=== PATIENT | male | born 1960 | race Two or more races ===

== ENCOUNTER 2017-09-23 08:11 | Emergency (ER) | payer MEDICAID ==
[~2017-09-23] VITALS: Ht 170.2 cm; Wt 72.6 kg
[2017-09-23 08:58] VITALS: BP 149/91
--- NOTE | 2017-09-23 09:02 | Emergency Room Report ---
History of Present Illness General Chief Complaint: Eye Problems Source: Patient Present Illness HPI This patient states that he does have a history of dry eyes. He has seen an eye doctor for this. However, he states that over the past day he has had a gritty feeling to both of his eyes. He states that he also has watery eyes. He states that this morning when he woke up he had crossed all over his eyes. He denies sneezing. He denies cough or congestion. He denies blurry vision. He denies fever or chills. He has no other complaints. Allergies: Coded Allergies: No Known Allergies (Unverified , 09/23/17) Patient History Past Medical History: none Past Surgical History: none Social History: Denies: smoking, alcohol use, drug use Reviewed Nursing Documentation: PMH: Agreed; PSxH: Agreed Nursing Documentation-PMH Past Medical History: No History, Except For Hx Cardiac Problems: No - dry eyes Review of Systems All Other Systems: negative except mentioned in HPI Physical Exam Vital Signs Date Time Temp Pulse Resp B/P (MAP) Pulse Ox O2 Delivery O2 Flow Rate FiO2 09/23/17 08:41 97.8 62 18 149/91 97 Room Air 97.9 Sp02 EP Interpretation: reviewed, normal General Appearance: no apparent distress, alert, GCS 15, non-toxic Head: normocephalic, atraumatic Eyes: bilateral eye PERRL, bilateral eye other - mild bilateral conjuctival erythema ENT: hearing grossly normal, normal pharynx, no angioedema, normal voice Respiratory: no respiratory distress, no retraction, no accessory muscle use, speaking full sentences Musculoskeletal: gait/station normal Neurologic: alert, oriented x3, responsive, motor strength/tone normal, sensory intact, speech normal Psychiatric: judgement/insight normal, memory normal, mood/affect normal, no suicidal/homicidal ideation Skin: normal color, no rash, warm/dry, well hydrated Medical Decision Making Diagnostic Impression: Primary Impression: Conjunctivitis ER Course This patient has a physical exam and history consistent with viral conjunctivitis. The patient does not wear contacts. There is no evidence of bacterial conjunctivitis. Also my differential is allergic conjunctivitis. I will go ahead and give the patient Ilotycin for comfort and as a precaution. The patient is also instructed on warm compresses. There is no evidence of a vision threatening medical condition. The patient is instructed to follow-up with an sat instructor as soon as possible. The patient is given close return precautions and follow-up instructions. Last Vital Signs Date Time Temp Pulse Resp B/P (MAP) Pulse Ox O2 Delivery O2 Flow Rate FiO2 09/23/17 08:41 97.8 62 18 149/91 97 Room Air 97.9 Disposition: HOME, SELF-CARE Condition: Improved Referrals: [facility],REFERRING (PCP) Patient Instructions: Viral Conjunctivitis CELIA IVERSON D.O. Sep 23, 2017 09:02
[2017-09-23] MEDS ORDERED: ERYTHROMYCIN3.5 GM BOTH EYES (09:20)
[2017-09-23 09:33] VITALS: BP 149/91
== END 2017-09-23 09:35 | disposition home or self-care (01) ==
LOC: EMR 09:01
DX: H10.9 Unspecified conjunctivitis (principal)
CPT/HCPCS: 99283

== ENCOUNTER 2017-09-27 15:51 | Inpatient (IN) | payer MEDICAID ==
[~2017-09-27] VITALS: Ht 170.2 cm; Wt 71.2 kg
[~2017-09-27 15:51] MED LIST: ERYTHROMYCIN3.5 GM BOTH EYES
[2017-09-27] MEDS ORDERED: NKM (16:06)
[2017-09-27 16:18] VITALS: BP 145/90
--- NOTE | 2017-09-27 16:38 | Emergency Room Report ---
History of Present Illness General Chief Complaint: Headache Source: Patient Present Illness HPI 57-year-old male with no medical history presents with left-sided temporoparietal area headache that started around midnight last night, constant , throbbing type pain, he also reports she's noticed for the last 1 week left eye blurred vision and for the last 2-3 weeks left-sided weakness in his arms and legs. He denies any trauma, any fevers or chills, any slurred speech, loss of consciousness, chest pain, short of breath, any other complaints. Allergies: Coded Allergies: No Known Allergies (Unverified , 09/23/17) Patient History Past Medical History: none, see triage record Past Surgical History: none Pertinent Family History: CVA - Mother Social History: Denies: smoking, alcohol use, drug use Reviewed Nursing Documentation: PMH: Agreed; PSxH: Agreed Nursing Documentation-PMH Past Medical History: No Stated History Hx Cardiac Problems: No - dry eyes Review of Systems All Other Systems: negative except mentioned in HPI Physical Exam Vital Signs Date Time Temp Pulse Resp B/P (MAP) Pulse Ox O2 Delivery O2 Flow Rate FiO2 09/27/17 16:02 98.3 71 18 145/90 96 Room Air 98.2 Sp02 EP Interpretation: reviewed, normal General Appearance: no apparent distress, alert, non-toxic Head: normocephalic Eyes: bilateral eye normal inspection, bilateral eye PERRL, bilateral eye EOMI ENT: normal ENT inspection, hearing grossly normal, normal pharynx, no angioedema, normal voice, moist mucus membranes Neck: normal inspection, full range of motion, supple, supple/symm/no masses Respiratory: chest non-tender, lungs clear, normal breath sounds, chest symmetrical, palpation of chest normal Cardiovascular #1: normal peripheral pulses, regular rate, rhythm Cardiovascular #2: 2+ radial (R), 2+ radial (L) Gastrointestinal: normal inspection, non tender, soft, no mass, no guarding, no rebound Rectal: deferred Genitourinary: normal inspection, no CVA tenderness Musculoskeletal: back normal, gait/station normal, normal range of motion, non- tender, no calf tenderness Neurologic: alert, responsive, direct of real estate III-XII nml as tested, motor strength/tone normal - Negative pronator drift, 5 out of 5 strength in all extremities except for left lower extremity with 4+ out of 5 strength when attempting to hold leg above the bed for 10 seconds, he starts to drift slightly, sensory intact - Patient reports decreased sensation left upper extremity and left lower extremity when compared to the right, normal gait, speech normal Psychiatric: judgement/insight normal, memory normal, mood/affect normal, no suicidal/homicidal ideation Skin: normal color, no rash, warm/dry, normal turgor Lymphatic: no adenopathy Medical Decision Making Diagnostic Impression: Primary Impression: Headache Additional Impression: Weakness ER Course Patient with left-sided upper and lower extremity numbness as well as left lower extremity weakness, as well as left-sided headache, symptoms concerning for possible stroke although patient has no risk factors other than having his mother with a history of stroke. He does have subjective numbness in the left upper and lower extremities when compared to the right, he also has left lower extremity with mild weakness when attempting to hold leg off the stretcher. Patient was given aspirin for possible stroke as well as Tylenol for headache. His headache started last night around midnight which is over 16 hours ago, and his weakness symptoms have been going on for a couple of weeks, so he is not a TPA candidate and out of the window for any neuro interventional options. He' ll be admitted for possible cva. EKG Diagnostic Results EKG Time: 16:36 EP Interpretation: NO st-t changes, no TWI's Rate: normal Rhythm: NSR ST Segments: no acute changes ASA given to the pt in ED: Yes Rhythm Strip Diag. Results Rhythm Strip Time: 17:03 EP Interpretation: yes Rate: 68 Rhythm: NSR, no PVC's, no ectopy Chest X-Ray Diagnostic Results Chest X-Ray Diagnostic Results : Chest X-Ray Ordered: Yes # of Views/Limited/Complete: 1 View Indication: Other EP Interpretation: Yes PA Xray: Interpretation reviewed Interpretation: no consolidation, no effusion, no pneumothorax, no acute cardiopulmonary disease Impression: No acute disease Electronically Signed by: Bandar Pearson MD CT/MRI/US Diagnostic Results CT/MRI/US Diagnostic Results : Imaging Test Ordered: CT head noncontrast Impression normal other than sinus dz Last Vital Signs Date Time Temp Pulse Resp B/P (MAP) Pulse Ox O2 Delivery O2 Flow Rate FiO2 09/27/17 16:18 98.2 72 18 145/90 96 Room Air 98.2 Disposition: ADMITTED INPATIENT Condition: Stable Signed Out To: BANDAR Plummer M.D Sep 27, 2017 16:38
[2017-09-27 17:07] LABS: BASOPHILS % (AUTO) 1.3 % (0.0-2.0); EOSINOPHILS % (AUTO) 0.3 % (0.0-3.0); HEMATOCRIT 41.5 % (42.0-52.0); LYMPHOCYTES % (AUTO) 25.6 % (20.0-45.0); MEAN CORPUSCULAR VOLUME 95 FL (80-99); NEUTROPHILS % (AUTO) 64.9 % (45.0-75.0); PLATELET COUNT 206 K/UL (150-450); RED BLOOD COUNT 4.36 M/UL (4.70-6.10); RED CELL DISTRIBUTION WIDTH 11.9 % (11.6-14.8); WHITE BLOOD COUNT 6.7 K/UL (4.8-10.8)
[2017-09-27 17:13] LABS: ANION GAP 9 mmol/L (5-15); BLOOD UREA NITROGEN 16 mg/dL (7-18); CALCIUM 8.8 MG/DL (8.5-10.1); CARBON DIOXIDE 26 MMOL/L (21-32); CHLORIDE 104 MMOL/L (98-107); CREATININE 1.2 MG/DL (0.55-1.30); POTASSIUM 3.8 MMOL/L (3.5-5.1); SODIUM 139 MMOL/L (136-145)
--- NOTE | 2017-09-27 17:18 | Diagnostic Imaging Report ---
Indication: Shortness of breath Technique: One view of the chest Comparison: none Findings: Lungs and pleural spaces are clear. Heart size is normal Impression: No acute process
--- NOTE | 2017-09-27 17:20 | Diagnostic Imaging Report ---
Indications: Left-sided temporoparietal area headache that started around midnight last night, constant throbbing pain, left eye blurred vision, left-sided weakness in his arms and legs Technique: Spiral acquisitions obtained through the brain. Angled axial and coronal 5 x 5 mm slices were reconstructed. Total dose length product 1312.21 mGycm. CTDI vol(s) 70.38 mGy. Dose reduction achieved using automated exposure control Comparison: None. Findings: No acute intrarenal hemorrhage or edema. No mass effect nor midline shift. Normal bermudez-white differentiation. Normal-sized ventricles and extra-axial CSF spaces. There is left-sided sphenoid sinus opacification. The visualized orbits are unremarkable. Impression: Negative for acute intracranial bleed or mass effect Sinus disease The CT scanner at [facility] is accredited by the [employer] and the scans are performed using protocols designed to limit radiation exposure to as low as reasonably achievable to attain images of sufficient resolution adequate for diagnostic evaluation.
[2017-09-27 17:24] LABS: ALANINE AMINOTRANSFERASE 18 U/L (12-78); ALBUMIN 3.8 G/DL (3.4-5.0); ALBUMIN/GLOBULIN RATIO 1.1 (1.0-2.7); ALKALINE PHOSPHATASE 87 U/L (46-116); ASPARTATE AMINO TRANSFERASE 18 U/L (15-37); BILIRUBIN,TOTAL 1.3 MG/DL (0.2-1.0); CHOLESTEROL 165 MG/DL (< 200); HDL CHOLESTEROL 65 MG/DL (40-60); TRIGLYCERIDES 74 MG/DL (30-150)
[2017-09-27 17:25] LABS: BILIRUBIN,DIRECT 0.2 MG/DL (0.0-0.3)
[2017-09-27 18:50] VITALS: BP 110/72
[2017-09-27 19:35] VITALS: BP 122/74
[2017-09-27 20:00] VITALS: BP 133/83
[2017-09-27] MEDS ORDERED: Gadavist 7.5mMol/7.5ml vial IV PRN (20:00)
--- NOTE | 2017-09-27 21:45 | History and Physical Report ---
DATE OF ADMISSION: 09/27/2017 REASON FOR ADMISSION: 1. Left-sided headache. 2. Left-sided weakness. HISTORY OF PRESENT ILLNESS: The patient is a 57-year-old male, who presented to the emergency room complaining of left-sided temporoparietal area headache starting around midnight yesterday, chronic, throbbing in nature, along with 2 to 3 weeks of left-sided weakness in his arms and legs. He denies taking any medications at home. He denies doing any illicit drug use and also he denies ever smoking in the past. The patient says that he is otherwise healthy and was not taking any medications. No nausea, vomiting, or diarrhea. Feeling otherwise well. He says that the weakness started approximately 2 to 3 weeks ago in his arms and legs and that the headache started last night with some throbbing pain. No current distress. PAST MEDICAL HISTORY: None. PAST SURGICAL HISTORY: None. ALLERGIES: None. FAMILY HISTORY: CVA in the mother. SOCIAL HISTORY: The patient denies smoking or alcohol or illicit drug use. REVIEW OF SYSTEMS: NEUROLOGIC: The patient denies headache, change in vision, syncope, or presyncopal episodes. CARDIOVASCULAR: No current chest pain, palpitations, or angina. PULMONARY: No difficulty breathing, productive cough, or sputum. GASTROINTESTINAL/GENITOURINARY: No change in bowel habits. No nausea, vomiting, or diarrhea. CARDIOLOGY: No night sweats, fevers, or chills. MUSCULOSKELETAL: The patient is feeling a little weak and tired with some left-sided weakness. PHYSICAL EXAM: VITAL SIGNS: Blood pressure 110/72, respiratory rate 16, pulse 75, and temperature 98.2. GENERAL: The patient is awake, alert, not otherwise in distress. HEENT: Extraocular muscles intact. No lymphadenopathy noted. CARDIOVASCULAR: S1 and S2. Regular rate. PULMONARY: Clear to auscultation bilaterally. No rales, rhonchi, or wheezes. ABDOMEN: Nondistended and nontender. EXTREMITY: No edema. NEUROLOGICAL: The patient is alert and responsive. Negative for pronator drift. EXTREMITIES: Left lower extremity, 4/5 strength and the patient reports some decreased sensation in left upper extremity and lower extremity. Otherwise negative. LABORATORY DATA: Labs dated 09/27/2017 sodium 139, potassium 3.8, BUN 16, and creatinine 1.2. AST and ALT are 18 and 18 respectively. Troponin 0.0. LDL 95, HDL 65, triglycerides 74, and cholesterol 165. White cell count 6.7, hemoglobin 14, and platelet count 206,000. CT of the head with no IV contrast was negative for acute intracranial bleed or mass effect. ASSESSMENT AND PLAN: 1. Headache with left-sided weakness, possible transient ischemic attack. At this time, CT of the head did not show any acute processes. The patient will be started on a daily aspirin. Along with this, carotid bilateral ultrasound to rule out the possibility of stenosis along with MRA of the head has been ordered. We also placed a consultation to Neurology for further evaluation and management. 2. Deep venous thrombosis prophylaxis with Lovenox subcutaneous. 3. Hyperlipidemia. At this time, cholesterol panel within normal limits, but the patient with a transient ischemic attack, we will check a urine drug screen and consult Neurology to see whether or not statin therapy should be initiated. Mihir Carter MD DR: NITISH JOB#: [id number] CC:
[2017-09-27] MEDS: Aspirin EC 81mg tab ORAL SCH (23:45)
[2017-09-27] MEDS: Enoxaparin 40mg Inj SUBQ SCH (23:46)
[2017-09-28] VITALS: BP 120/74
[2017-09-28 04:00] VITALS: BP 105/71
[2017-09-28 08:00] VITALS: BP 129/81
--- NOTE | 2017-09-28 08:56 | Nephrology Progress Note ---
Assessment/Plan Assessment/Plan 1. ALEMAN with left Sided weakness - CT Head neg - carotid US and MRA head pending. Neuro consulted - left sided weakness for 2 weeks, this may be complicated migraine - ASA 2. DVT Prophylaxis with lovenox Subjective Date patient seen: Sep 28, 2017 Time patient seen: 08:51 ROS Limited/Unobtainable: No Allergies: Coded Allergies: No Known Allergies (Unverified , 09/23/17) All Systems: reviewed and negative except above Subjective Patient feeling better. ALEMAN improved Objective Last 24 Hour Vital Signs Date Time Temp Pulse Resp B/P (MAP) Pulse Ox O2 Delivery O2 Flow Rate FiO2 09/28/17 08:00 98.2 67 16 129/81 98 Room Air 98.2 09/28/17 04:00 51 09/28/17 04:00 98.2 57 20 105/71 97 Room Air 98.2 09/28/17 00:00 98.1 59 20 120/74 97 Room Air 98.1 09/28/17 00:00 71 09/27/17 20:00 98.2 70 20 133/83 98 Room Air 98.2 09/27/17 19:55 97.6 60 11 122/74 96 Room Air 97.6 09/27/17 19:35 97.6 60 11 122/74 96 Room Air 97.6 09/27/17 18:50 98.2 09/27/17 18:50 98.2 75 16 110/72 96 Room Air 98.2 09/27/17 17:19 98.2 09/27/17 16:18 98.2 72 18 145/90 96 Room Air 98.2 09/27/17 16:02 98.3 71 18 145/90 96 Room Air 98.2 Intake and Output 09/27/17 09/28/17 19:00 07:00 Intake Total 120 ml Output Total 0 ml Balance 0 ml 120 ml Intake Oral 120 ml Output Urine Total 0 ml # Voids 2 Laboratory Tests 09/27/17 16:33: White Blood Count 6.7, Red Blood Count 4.36L, Hemoglobin 14.0L, Hematocrit 41.5L , Mean Corpuscular Volume 95, Mean Corpuscular Hemoglobin 32.2H, Mean Corpuscular Hemoglobin Concent 33.8, Red Cell Distribution Width 11.9, Platelet Count 206, Mean Platelet Volume 9.5, Neutrophils (%) (Auto) 64.9, Lymphocytes (% ) (Auto) 25.6, Monocytes (%) (Auto) 8.0, Eosinophils (%) (Auto) 0.3, Basophils ( %) (Auto) 1.3, Prothrombin Time 10.7, Prothromb Time International Ratio 1.0, Activated Partial Thromboplast Time 28, Sodium Level 139, Potassium Level 3.8, Chloride Level 104, Carbon Dioxide Level 26, Anion Gap 9, Blood Urea Nitrogen 16 , Creatinine 1.2, Estimat Glomerular Filtration Rate > 60, Glucose Level 131H, Calcium Level 8.8, Total Bilirubin 1.3H, Direct Bilirubin 0.2, Aspartate Amino Transf (AST/SGOT) 18, Alanine Aminotransferase (ALT/SGPT) 18, Alkaline Phosphatase 87, Troponin I 0.000, Total Protein 7.4, Albumin 3.8, Globulin 3.6, Albumin/Globulin Ratio 1.1, Triglycerides Level 74, Cholesterol Level 165, LDL Cholesterol 95, HDL Cholesterol 65H, Cholesterol/HDL Ratio 2.5L 09/27/17 19:46: Urine Opiates Screen Negative, Urine Barbiturates Screen Negative, Phencyclidine (PCP) Screen Negative, Urine Amphetamines Screen Negative, Urine Benzodiazepines Screen Negative, Urine Cocaine Screen Negative, Urine Marijuana (THC) Screen Negative Height (Feet): 5 Height (Inches): 7.00 Weight (Pounds): 160 General Appearance: no apparent distress, alert EENT: normal ENT inspection, TMs normal Neck: normal alignment, supple Cardiovascular: normal rate, regular rhythm Respiratory/Chest: lungs clear, normal breath sounds Abdomen: normal bowel sounds, non tender, soft Edema: no edema noted Arm (L), no edema noted Arm (R), no edema noted Leg (L), no edema noted Leg (R), no edema noted Pedal (L), no edema noted Pedal (R), no edema noted Generalized Mihir Carter M.D. Sep 28, 2017 08:55
[2017-09-28] MEDS: Aspirin EC 81mg tab ORAL SCH (09:10)
[2017-09-28 09:23] LABS: ANION GAP 6 mmol/L (5-15); BLOOD UREA NITROGEN 13 mg/dL (7-18); CALCIUM 8.5 MG/DL (8.5-10.1); CARBON DIOXIDE 27 MMOL/L (21-32); CHLORIDE 106 MMOL/L (98-107); POTASSIUM 3.6 MMOL/L (3.5-5.1); SODIUM 139 MMOL/L (136-145)
--- NOTE | 2017-09-28 10:46 | Diagnostic Imaging Report ---
Indications: Weakness in left arm and left leg, left eye blurring, left-sided headache Technique: 3D [id number] images obtained through the [place]. MIP reconstructions were generated in multiple rotational projections Comparison: No comparison MRIs. Reference made to CT scan 09/27/2017 Findings: Codominant distal vertebral arteries. Patent and normal caliber proximal bilateral PICA is. Patent and nonstenotic basilar artery. Patent bilateral superior cerebellar arteries, bilateral P1 segments and proximal posterior cerebral arteries. Neither posterior communicating artery is demonstrated. Patent bilateral distal internal carotid arteries, bilateral A1 segments and proximal branches, bilateral M1 segments and proximal branches, no significant stenosis. Patent anterior to indicating artery is demonstrated. No evidence of aneurysm or vascular malformation. Impression: Negative for evidence of significant proximal intracranial cerebral vascular insufficiency Variant anatomy of the [place], as described
[2017-09-28 12:00] VITALS: BP 118/79
--- NOTE | 2017-09-28 14:04 | Cardiology Report ---
APPROVED REPORT EKG Measurement Heart [id number] [place] [id number] Normal sinus rhythm Normal ECG
[2017-09-28 16:00] VITALS: BP 118/78
[2017-09-28 20:00] VITALS: BP 124/77
[2017-09-28] MEDS: Enoxaparin 40mg Inj SUBQ SCH (21:32)
--- NOTE | 2017-09-28 22:37 | Consultation ---
Consult Note Consult Note NEUROLOGY CONSULTATION: Full note dictated #[id number] 57 y/o, RH, HM with benign PH. For the last 3 weeks he has had left sided neck pain that at times radiates into the left head. He has also felt some weakness and numbness in the left UE and LE. ON EXAM: G 2/4 L and G Tr/4 R C-PS and trap spasm. 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 Left sided discomfort due to neck spasm. REC: MRI of brain to exclude intracranial path. Flexeril 10 mg q HS Ibuprofen 400 mg tid with meals for 3 days. Jaclyn Johnson M.D., M.S.P.[place]. JACLYN JOHNSON Sep 28, 2017 22:37
[2017-09-28] MEDS: Cyclobenzaprine 10mg Tab ORAL SCH (23:08)
[2017-09-29] VITALS: BP 119/76
--- NOTE | 2017-09-29 03:45 | Consultation ---
DATE OF CONSULTATION: 09/28/2017 NEUROLOGY CONSULTATION CONSULTING PHYSICIAN: Tomas Johnson M.D. REQUESTING PHYSICIAN: Mihir Carter M.D. HISTORY: Mr. Konstantin Cottrell is a 57-year-old, right-handed, gentleman with a benign past history. He was functioning relatively well until approximately 3 weeks ago when he started to have some left-sided neck pain. The neck pain would at times radiate into his left head. He also started to feel some tingling, numbness, and weakness on his entire left side involving predominantly the left upper extremity and left lower extremity. The problem became more marked as time passed and as a result of that, he presented to the [facility] emergency room and was admitted for a possible cerebrovascular event. At this point in time, he continues to have a left-sided neck ache and feels weak and numb in his left upper and lower extremities. He denies any problems with speech, language, vision, memory, or other neurological symptoms. PAST MEDICAL HISTORY: Nothing significant. FAMILY HISTORY: His mother had a stroke. PERSONAL HISTORY: Home: He lives with his and son. 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 Habits: He denies use of alcohol, tobacco, or illicit drugs. MEDICATIONS: Ibuprofen 200 mg q.8 h. p.r.n., Lovenox, aspirin 81 mg daily, Tylenol p.r.n., and Zofran p.r.n. PHYSICAL EXAMINATION: GENERAL: He is a well-developed, well-nourished, pleasant, but anxious gentleman, lying in bed, in no acute distress. VITAL SIGNS: Pulse 64/minute, blood pressure 124/77 mmHg, respirations 18/minute, and temperature 98.2 degrees Fahrenheit. HEAD: Normocephalic and atraumatic. NECK: No neck rigidity was observed. He did have a G 2/4 cervical paraspinal muscle and trapezius spasm on the left side and G trace/4 cervical paraspinal muscle and trapezius spasm on the right side. EENT: Examination benign. NEUROLOGIC EXAMINATION: MENTAL STATUS EXAMINATION: He was awake and alert. He was oriented to person, place, and time. He was able to recall 3/3 words immediately after 1 minute and after 3 minutes. He was able to remember presidents, Trump and Obama, but could not remember presidents prior to that. His mathematical skills were minimally impaired. His visuospatial function was relatively good. SPEECH: He had no dysarthria. LANGUAGE: He had no aphasia taking into account that Haitian is his second language. CRANIAL NERVE EXAMINATION: II: The visual jensen were intact to confrontation testing. III, IV & : External ocular movements were full and the pupils 3 mm in diameter, equal, round, regular, and reactive to light. V: He had normal facial sensations, and the temporales, masseters, and pterygoids functioned normally. VII: He had normal facial expressions and no facial asymmetry. VIII: He was able to hear well bilaterally and had no nystagmus. IX: The palate moved symmetrically on phonation. X: He had no hoarseness of voice. XI: The sternocleidomastoids and trapezii functioned normally. XII: The tongue was in the midline without any fasciculations or atrophy. MOTOR SYSTEM: The tone was normal in all four extremities. Examination of muscle mass revealed no focal wasting. Examination of power revealed G 5/5 power in all muscle groups. SENSORY EXAMINATION: He had intact sensations to pinprick, light touch, and graphesthesia. COORDINATION: He performed well on [id number]-[id number] and pkok-yk-ocso testing. On Romberg test, he swayed, but did not fall to one side or the other. REFLEXES: 1+ and bilaterally symmetrical at the biceps, triceps, brachioradialis, knees, and ankles. The plantar responses were flexor bilaterally. STANCE: He had a normal stance. GAIT: He had a normal regular gait and walked well on his heels and toes. DIAGNOSTIC IMPRESSION: 1. Mr. Konstantin Cottrell is a 57-year-old, right-handed, gentleman, with a relatively benign past history, who for the last 3 weeks has had a left-sided neck ache, which at times radiates into the left head. He has also developed some weakness and numbness involving his left upper and lower extremities. 2. On neurological examination at this time, he does have G 2/4 left and G Trace/4 right cervical paraspinal muscle and trapezius spasm and globally diminished deep tendon reflexes, but the rest of the neurological examination is normal. He does not demonstrate any motor or sensory findings at this point in time. 3. Laboratory data obtained thus far revealed a relatively normal CBC, relatively normal chemistry panel except for elevated blood sugars, negative toxicology screen, and an INR at 1.0. 4. The CT scan of the brain without contrast performed on 09/27/2017 is benign. 5. An MRA of the intracranial and extracranial blood vessels is benign. 6. The patient's history and neurological examination are most compatible with significant left greater than right cervical paraspinal muscle and trapezius spasm causing left-sided discomfort and what he perceives as weakness with no objective weakness. I doubt any central nervous system pathology. RECOMMENDATIONS: 1. Agree with management thus far. 2. The patient will be started on ibuprofen 400 mg tid around the clock for the next 3 days. 3. He will be started on Flexeril 10 mg at bedtime for the next few days. 4. An MRI scan of the brain will be ordered to exclude intracranial pathology. 5. Depending on how the patient fares over the next day or so, further recommendations will be given. Thank you for entrusting me with the care of Mr. Cottrell. I shall follow him with you. Tomas Johnson M.D., M.S.P.H. DR: MARY JOB#: [id number] [email or web address]
[2017-09-29 04:00] VITALS: BP 110/69
[2017-09-29 07:12] LABS: ANION GAP 4 mmol/L (5-15); BLOOD UREA NITROGEN 12 mg/dL (7-18); CALCIUM 8.7 MG/DL (8.5-10.1); CARBON DIOXIDE 31 MMOL/L (21-32); CHLORIDE 105 MMOL/L (98-107); CREATININE 1.1 MG/DL (0.55-1.30); POTASSIUM 3.7 MMOL/L (3.5-5.1); SODIUM 140 MMOL/L (136-145)
[2017-09-29 07:35] LABS: BASOPHILS % (AUTO) 1.1 % (0.0-2.0); EOSINOPHILS % (AUTO) 0.9 % (0.0-3.0); HEMATOCRIT 42.3 % (42.0-52.0); HEMOGLOBIN 14.3 G/DL (14.2-18.0); LYMPHOCYTES % (AUTO) 44.1 % (20.0-45.0); MEAN CORPUSCULAR VOLUME 94 FL (80-99); NEUTROPHILS % (AUTO) 43.9 % (45.0-75.0); PLATELET COUNT 193 K/UL (150-450); RED BLOOD COUNT 4.52 M/UL (4.70-6.10); RED CELL DISTRIBUTION WIDTH 11.4 % (11.6-14.8); WHITE BLOOD COUNT 5.5 K/UL (4.8-10.8)
[2017-09-29 08:00] VITALS: BP 117/75
[2017-09-29] MEDS: Aspirin EC 81mg tab ORAL SCH (08:26)
--- NOTE | 2017-09-29 08:41 | Nephrology Progress Note ---
Assessment/Plan Assessment/Plan 1. ALEMAN with left Sided weakness - CT Head neg - MRI Head/MRA Neck- Negative for evidence of significant proximal intracranial cerebral vascular insufficiency - DC patient today if cleared by Neurology with 3 days of Flexeril and Ibuprofen 2. DVT Prophylaxis with lovenox Subjective Date patient seen: Sep 29, 2017 Time patient seen: 08:37 ROS Limited/Unobtainable: No Allergies: Coded Allergies: No Known Allergies (Unverified , 09/23/17) All Systems: reviewed and negative except above Subjective Patient feeling better. ALEMAN improved. No complaints Objective Last 24 Hour Vital Signs Date Time Temp Pulse Resp B/P (MAP) Pulse Ox O2 Delivery O2 Flow Rate FiO2 09/29/17 04:00 98.1 56 18 110/69 96 Room Air 98.1 09/29/17 04:00 55 09/29/17 00:00 59 09/29/17 00:00 98.1 55 18 119/76 99 Room Air 98.1 09/28/17 20:00 98.2 59 18 124/77 98 Room Air 98.2 09/28/17 20:00 57 09/28/17 19:03 98.2 09/28/17 16:00 58 09/28/17 16:00 98.2 64 20 118/78 98 Room Air 98.2 09/28/17 12:00 98.7 64 18 118/79 99 Room Air 98.7 09/28/17 11:34 57 Intake and Output 09/28/17 09/29/17 19:00 07:00 Intake Total 730 ml 320 ml Balance 730 ml 320 ml Intake Oral 730 ml 320 ml # Voids 5 3 # Bowel Movements 1 Laboratory Tests 09/28/17 09:00: Sodium Level 139, Potassium Level 3.6, Chloride Level 106, Carbon Dioxide Level 27, Anion Gap 6, Blood Urea Nitrogen 13, Creatinine 1.0, Estimat Glomerular Filtration Rate > 60, Glucose Level 122H, Calcium Level 8.5 09/29/17 05:35: Sodium Level 140, Potassium Level 3.7, Chloride Level 105, Carbon Dioxide Level 31, Anion Gap 4L, Blood Urea Nitrogen 12, Creatinine 1.1, Estimat Glomerular Filtration Rate > 60, Glucose Level 91, Calcium Level 8.7, White Blood Count 5.5 , Red Blood Count 4.52L, Hemoglobin 14.3, Hematocrit 42.3, Mean Corpuscular Volume 94, Mean Corpuscular Hemoglobin 31.8H, Mean Corpuscular Hemoglobin Concent 33.9, Red Cell Distribution Width 11.4L, Platelet Count 193, Mean Platelet Volume 8.7, Neutrophils (%) (Auto) 43.9L, Lymphocytes (%) (Auto) 44.1, Monocytes (%) (Auto) 10.0, Eosinophils (%) (Auto) 0.9, Basophils (%) (Auto) 1.1 Height (Feet): 5 Height (Inches): 7.00 Weight (Pounds): 157 General Appearance: no apparent distress, alert EENT: normal ENT inspection, TMs normal Neck: normal alignment, supple Cardiovascular: normal rate, regular rhythm Respiratory/Chest: lungs clear, normal breath sounds Abdomen: non tender, soft Edema: no edema noted Arm (L), no edema noted Arm (R), no edema noted Leg (L), no edema noted Leg (R), no edema noted Pedal (L), no edema noted Pedal (R), no edema noted Generalized Mihir Carter M.D. Sep 29, 2017 08:41
--- NOTE | 2017-09-29 08:46 | Discharge Instructions ---
Discharge Instructions Discharge Instructions Diet: low cholesterol Resume Normal Activity?: Yes Activity: resume normal activities Pneumonia Vaccine: vaccine not indicated Influenza Vaccine (Jan to Jun): vaccine not indicated Follow Up Orders 1. F/U PCP 1 week 2/ F/U Neurology 1 week For Congestive Heart Failure Reminder Report to your physician any weight gain of 5 pounds or more in one week. Mihir Carter M.D. Sep 29, 2017 08:46
--- NOTE | 2017-09-29 11:05 | Diagnostic Imaging Report ---
Indication: Left arm and left leg weakness, left eye blurring, left-sided headache Technique: sagittal T1 fast spin echo, axial T1 FLAIR, axial T2 FLAIR, axial T2 FS PROPELLER, axial T2* GRE, axial diffusion weighted images. ADC and exponential ADC maps generated Comparison: Reference made to head CT scan dated 09/27/2017 Findings: No abnormal areas of restricted diffusion to suggest acute infarction. No acute hemorrhage or edema. No mass effect nor midline shift. Normal size ventricles and extra axial CSF spaces. Patent cavum septum pellucidum. There is sphenoid sinus opacification.. Visualized orbits and sinuses are unremarkable. Impression: Essentially unremarkable exam. Negative for acute intracranial bleed, mass effect, or infarct Incidental finding of sphenoid sinus disease
[2017-09-29 12:00] VITALS: BP 117/77
[2017-09-29 16:00] VITALS: BP 116/73
[2017-09-29 20:00] VITALS: BP 115/77
[2017-09-29] MEDS: Cyclobenzaprine 10mg Tab ORAL SCH (20:11)
[2017-09-29] MEDS: Enoxaparin 40mg Inj SUBQ SCH (20:11)
--- NOTE | 2017-09-29 21:14 | Neurology Progress Note ---
Interim History Interim History Interim History Mr. Cottrell feels much better today. The left neck pain and spasm is significantly better. The numbness and weakness on the left side has resolved. He has had no significant headaches. He denies any new neurologic symptoms. Review of Systems Neuro Review of Systems Benign. Objective Physical Exam Last Vital Signs Date Time Temp Pulse Resp B/P (MAP) Pulse Ox O2 Delivery O2 Flow Rate FiO2 09/29/17 20:00 98.2 58 20 115/77 95 Room Air 98.2 Laboratory Tests Test 09/29/17 05:35 White Blood Count 5.5 K/UL (4.8-10.8) Red Blood Count 4.52 M/UL (4.70-6.10) L Hemoglobin 14.3 G/DL (14.2-18.0) Hematocrit 42.3 % (42.0-52.0) Mean Corpuscular Volume 94 FL (80-99) Mean Corpuscular Hemoglobin 31.8 PG (27.0-31.0) H Mean Corpuscular Hemoglobin Concent 33.9 G/DL (32.0-36.0) Red Cell Distribution Width 11.4 % (11.6-14.8) L Platelet Count 193 K/UL (150-450) Mean Platelet Volume 8.7 FL (6.5-10.1) Neutrophils (%) (Auto) 43.9 % (45.0-75.0) L Lymphocytes (%) (Auto) 44.1 % (20.0-45.0) Monocytes (%) (Auto) 10.0 % (1.0-10.0) Eosinophils (%) (Auto) 0.9 % (0.0-3.0) Basophils (%) (Auto) 1.1 % (0.0-2.0) Sodium Level 140 MMOL/L (136-145) Potassium Level 3.7 MMOL/L (3.5-5.1) Chloride Level 105 MMOL/L (98-107) Carbon Dioxide Level 31 MMOL/L (21-32) Anion Gap 4 mmol/L (5-15) L Blood Urea Nitrogen 12 mg/dL (7-18) Creatinine 1.1 MG/DL (0.55-1.30) Estimat Glomerular Filtration Rate > 60 mL/min (>60) Glucose Level 91 MG/DL (74-106) Calcium Level 8.7 MG/DL (8.5-10.1) Neurologic Exam Objective PHYSICAL EXAMINATION: GENERAL: He is a well-developed, well-nourished, pleasant, but anxious gentleman, lying in bed, in no acute distress. HEAD: Normocephalic and atraumatic. NECK: No neck rigidity was observed. He did have a G Trace/4 cervical paraspinal muscle and trapezius spasm. EENT: Examination benign. NEUROLOGIC EXAMINATION: MENTAL STATUS EXAMINATION: He was awake and alert. He was oriented to person, place, and time. He was able to recall 3/3 words immediately after 1 minute and after 3 minutes. He was able to remember presidents, Trump and Obama, but could not remember presidents prior to that. His mathematical skills were minimally impaired. His visuospatial function was relatively good. SPEECH: He had no dysarthria. LANGUAGE: He had no aphasia taking into account that [place] is his second language. CRANIAL NERVE EXAMINATION: II: The visual jensen were intact to confrontation testing. III, IV & : External ocular movements were full and the pupils 3 mm in diameter, equal, round, regular, and reactive to light. V: He had normal facial sensations, and the temporales, masseters, and pterygoids functioned normally. VII: He had normal facial expressions and no facial asymmetry. VIII: He was able to hear well bilaterally and had no nystagmus. IX: The palate moved symmetrically on phonation. X: He had no hoarseness of voice. XI: The sternocleidomastoids and trapezii functioned normally. XII: The tongue was in the midline without any fasciculations or atrophy. MOTOR SYSTEM: The tone was normal in all four extremities. Examination of muscle mass revealed no focal wasting. Examination of power revealed G 5/5 power in all muscle groups. SENSORY EXAMINATION: He had intact sensations to pinprick, light touch, and graphesthesia. COORDINATION: He performed well on [id number]-[id number] and ipzj-hk-ygdl testing. On Romberg test, he swayed, but did not fall to one side or the other. REFLEXES: 1+ and bilaterally symmetrical at the biceps, triceps, brachioradialis , knees, and ankles. The plantar responses were flexor bilaterally. STANCE: He had a normal stance. GAIT: He had a normal gait. Impression/Recommendations Diagnostic Impression 1. Mr. Konstantin Cottrell is a 57-year-old, right-handed, gentleman, with a relatively benign past history, who for the last 3 weeks has had a left- sided neck ache, which at times radiates into the left head. He has also developed some weakness and numbness involving his left upper and lower extremities. 2. He feels much better today. The left neck pain and spasm is significantly better. The numbness and weakness on the left side has resolved. He has had no significant headaches. He denies any new neurologic symptoms. 3. On neurological examination at this time, he does have G Trace/4 cervical paraspinal muscle and trapezius spasm and globally diminished deep tendon reflexes, but the rest of the neurological examination is normal. He does not demonstrate any motor or sensory findings at this point in time. 4. Laboratory data on my initial evaluation revealed a relatively normal CBC, relatively normal chemistry panel except for elevated blood sugars, negative toxicology screen, and an INR at 1.0. 5. The CT scan of the brain without contrast performed on 09/27/2017 is benign. 6. An MRA of the intracranial and extracranial blood vessels is benign. 7. The MRI of the brain done on 09/29/17 is normal. 8. The patient's history and neurological examination are most compatible with left greater than right cervical paraspinal muscle and trapezius spasm causing left-sided discomfort and what he was perceiving as weakness with no objective weakness. Central nervous system pathology has been excluded.. Recommendations 1. Continue present management. 2. Continue ibuprofen 400 mg tid for the next 2 days. 3. Continue Flexeril 10 mg at bedtime for the next 5 days. 4. Follow up with primary physician. 5. No further neurologic interventions indicated. Jaclyn Stone M.D., M.S.P.H. JACLYN STONE Sep 29, 2017 21:14
[2017-09-29] MEDS ORDERED: CYCLOBENZAPRINE10 MG ORAL (21:31)
[2017-09-29] MEDS ORDERED: ADVIL200 M2 ORAL (21:32)
--- NOTE | 2017-09-30 03:00 | Discharge Summary ---
DATE OF ADMISSION: 09/27/2017 DATE OF DISCHARGE: 09/29/2017 REASON FOR ADMISSION: 1. Headache. 2. Left-sided weakness. CONSULTANTS: Tomas Johnson M.D., Neurology. HOSPITAL COURSE: The patient is a 57-year-old gentleman, who presented for one day of mild occipital headache and neck spasms with 3 to 4 weeks of subjective left-sided weakness. The patient was admitted for further evaluation and care of possible transient ischemic attack. MRI of the head, MRA of the neck was negative. CT of the head was negative. Neurology was consulted and followed the patient. [place] not to have any central nervous system pathology. Impression was mainly left-sided discomfort due to neck spasm with no central nervous system pathology. The patient responded well to Flexeril and ibuprofen. The patient was stable for discharge. CONDITION: Stable to be discharged. DISCHARGE MEDICATIONS: 1. Flexeril 10 mg by mouth at bedtime for three days. 2. Ibuprofen 400 mg by mouth three times a day with meals for three days. DISCHARGE DIAGNOSES: 1. Left-sided neck spasm. 2. Headache. FOLLOWUP POST HOSPITALIZATION DISCHARGE: 1. Follow up with primary care in 1 to 2 weeks. 2. Follow up with Neurology in 1 to 2 weeks. Mihir Carter MD DR: FARHEEN JOB#: [id number] CC:
== END 2017-09-29 21:50 | disposition home or self-care (01) | DRG 54 ==
LOC: EMR 17:00 → 2E 17:32 → EDBEDREQ 18:44
DX: R51 Headache (principal); M62.838 Other muscle spasm; R53.1 Weakness; R20.0 Anesthesia of skin
CPT/HCPCS: 36415; 70450; 70544; 70551; 71045; 80048; 80053; 80061; 80307; 82248; 84484; 85025; 85610; 85730; 93005; 93880; 99285

== ENCOUNTER 2018-08-29 17:45 | Emergency (ER) | payer MEDICAID ==
[~2018-08-29] VITALS: Ht 170.2 cm; Wt 74.8 kg
[~2018-08-29 17:45] MED LIST changes: +ADVIL200 M2 ORAL; +CYCLOBENZAPRINE10 MG ORAL; +NKM
[2018-08-29] MEDS ORDERED: NKM (17:59)
--- NOTE | 2018-08-29 18:24 | NUR ---
ED Nurse Note: care assummed of pt. pt states he was getting into truck yest adolfo and fell back. he broke fall with his hands bilat. c/o pain to left ring and middle finger. edema and ecchymosis noted to area. denies dizziness.
--- NOTE | 2018-08-29 18:28 | NUR ---
ED Nurse Note: pt to xray
--- NOTE | 2018-08-29 18:44 | NUR ---
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
--- NOTE | 2018-08-29 18:59 | Diagnostic Imaging Report ---
Indication: left hand pain. Comparison: None Findings: 3 views of the left hand were obtained. There is a fracture of the tuft of the third digit. This may be old. Correlate clinically. The fourth digit shows intact distal phalanx. However there is a fracture involving the medial side or radial side of the head of the fourth proximal phalange. Acuity of this injury is not certain and again may be old. IMPRESSION: Deformity of the third distal phalangeal tuft consistent with the fracture injury. Acuity of this injury is uncertain on the basis of the exam. Acuity indeterminant mild avulsive type injury involving the radial side of the head of the fourth proximal phalange. Again clinical correlation is needed
[2018-08-29 19:04] VITALS: BP 136/86
--- NOTE | 2018-08-29 19:06 | NUR ---
ED Nurse Note:pt c/o increased pain after splint application. good cms noted. md aware pt requests pain med and he is driving home. report to moriah johnson
[2018-08-29] MEDS ORDERED: IBUPROFEN600 MG ORAL (19:10)
[2018-08-29 19:19] VITALS: BP 136/86
--- NOTE | 2018-08-29 19:21 | NUR ---
ER DISCHARGE NOTE: Patient is cleared to be discharged per ERMD, pt is aox4, on room air, with stable vital signs. pt was given dc and prescription instructions, pt was able to verbalize understanding, pt is able to ambulate with steady gait. pt took all belongings.
--- NOTE | 2018-08-29 22:18 | Emergency Room Report ---
History of Present Illness General Chief Complaint: Upper Extremity Injury Source: Patient Present Illness HPI 58-year-old male presents ED for evaluation. Patient complaining of left hand pain and bruising. States that yesterday he tripped and fell landing on his left hand. Notes bruising and pain to his middle and ring fingers. Pain is dull, 5 out of 10, nonradiating. Denies any other injuries. No other aggravating relieving factors. Denies any other associated symptoms Allergies: Coded Allergies: No Known Allergies (Unverified , 08/29/18) Patient History Past Medical History: none Past Surgical History: none Pertinent Family History: none Social History: Denies: smoking, alcohol use, drug use Immunizations: UTD Reviewed Nursing Documentation: PMH: Agreed; PSxH: Agreed Nursing Documentation-PMH Past Medical History: No Stated History Hx Cardiac Problems: No Hx Cancer: No Hx Gastrointestinal Problems: No Hx Neurological Problems: No Review of Systems All Other Systems: negative except mentioned in HPI Physical Exam Vital Signs Date Time Temp Pulse Resp B/P (MAP) Pulse Ox O2 Delivery O2 Flow Rate FiO2 08/29/18 17:55 99.3 75 16 97 Room Air 08/29/18 19:04 136/86 Sp02 EP Interpretation: reviewed, normal General Appearance: no apparent distress, alert, GCS 15, non-toxic Head: normocephalic Eyes: bilateral eye normal inspection, bilateral eye PERRL ENT: normal ENT inspection Neck: normal inspection Respiratory: normal inspection Cardiovascular #1: normal inspection Gastrointestinal: normal inspection Rectal: deferred Genitourinary: no CVA tenderness Musculoskeletal: tender - L hand 3rd and 4th fingers with bruising. no deformity Neurologic: alert, oriented x3, responsive, motor strength/tone normal, sensory intact, speech normal Psychiatric: normal inspection Skin: normal inspection Lymphatic: normal inspection Procedures Splinting Splinting : Consent: Verbal Pre-Made Type: metal - finger splint 3rd and 4th fingers Pre-Proc Neuro Vasc Exam: normal Post-Proc Neuro Vasc Exam: normal Patient Tolerated: Well Complications: None Medical Decision Making Diagnostic Impression: Primary Impression: Finger fracture Qualified Codes: S62.663A - Nondisplaced fracture of distal phalanx of left middle finger, initial encounter for closed fracture ER Course Hospital Course 58-year-old M presents to ED complaining of L hand pain s/p trip and fall Differential diagnoses include: Fracture, dislocation, sprain, contusion Clinical course Patient placed on stretcher. After initial history and physical, I ordered pain medications and Xrays of L hand X-ray show fracture of the third and fourth fingers. Nondisplaced. Placed in finger splints. Discussed findings with patient. Safe for discharge close outpatient follow- up. We'll provide ortho referrals Diagnosis -finger fracture Stable and discharged to home with prescription for Motrin. apply ice, keep elevated. weight bear as tolerated. Followup with PMD/ortho. Return to ED if symptoms recur or worsen Other X-Ray Diagnostic Results Other X-Ray Diagnostic Results : X-Ray ordered: L hand # of Views/Limited Vs Complete: 3 View Indication: Pain EP Interpretation: Yes Interpretation: no dislocation, no soft tissue swelling Impression: Other - fx 3rd and 4th fingers Electronically Signed by: Electronically signed by Rivera Lucero MD Last Vital Signs Date Time Temp Pulse Resp B/P (MAP) Pulse Ox O2 Delivery O2 Flow Rate FiO2 08/29/18 19:21 99.3 08/29/18 19:19 64 16 136/86 98 Room Air Status: improved Disposition: HOME, SELF-CARE Condition: Stable Scripts Ibuprofen* (MOTRIN*) 600 Mg Tablet 600 MG ORAL Q8H PRN for For Pain, #30 TAB 0 Refills Prov: Rivera Lucero MD 08/29/18 Referrals: [facility] Open 24 hour /7 days a week by Appointment Only [address] [facility] [address] [facility] [address] Patient Instructions: Finger Fracture, [id number]-[id number] Rivera Lucero MD August 29, 2018 22:18
== END 2018-08-29 19:19 | disposition home or self-care (01) ==
LOC: EMR 18:30
DX: S62.663A Nondisplaced fracture of distal phalanx of left middle finger, initial encounter for closed fracture (principal); W01.0XXA Fall on same level from slipping, tripping and stumbling without subsequent striking against object, initial encounter; Y92.9 Unspecified place or not applicable
CPT/HCPCS: 29130; 99283